=== PATIENT | male | born 1975 | race Hispanic/Latino ===

== ENCOUNTER 2024-04-17 21:39 | Emergency (ER) | payer OTHER, SELFPAY ==
[2024-04-17] MEDS ORDERED: Metoclopramide HCl 10 MG (2 mL) VIAL ONE (22:03)
[2024-04-17] MEDS ORDERED: Dexamethasone 10 MG/ML VIAL ONE (22:03)
[2024-04-17] MEDS ORDERED: Meclizine HCl 25 MG TAB ONE (22:03)
[2024-04-17] MEDS ORDERED: Lorazepam 2 MG/ML VIAL ONE (22:03)
[2024-04-17] MEDS ORDERED: diphenhydrAMINE 50 MG/ML VIAL ONE (22:09)
[2024-04-17 22:18] LABS: #Basophils 0.1 thou/uL (0.0-0.2); #Lymphocytes 1.1 thou/uL (1.20-3.40); #Monocytes 0.5 thou/uL (0.11-0.59); #Neutrophils 9.1 thou/uL (1.40-6.50); %Basophils 0.5 % (0.0-1.0); %Lymphocytes 9.9 % (21.0-51.0); %Monocytes 4.7 % (0.0-10.0); %Neutrophils 84.9 % (42.0-75.0); Hemoglobin 15.9 g/dL (14.0-18.0); Mean Corpuscular HGB CONC 34.5 g/dL (32.0-36.0); Mean Corpuscular Hemoglobin 28.7 pg (27.0-31.0); Mean Corpuscular Volume 83.1 fl (78.0-98.0); Mean Platelet Volume 6.7 fL (7.4-10.4); Platelet Count 278 10x3/uL (130-400); RBC Distribution Width 11.1 % (11.5-14.5); Red Blood Cell (RBC) Count 5.53 mill/uL (4.70-6.10); White Blood Cell (WBC) Count 10.8 10x3/uL (4.8-10.8)
[2024-04-17 22:26] LABS: ALT (SGPT) 32 U/L (8-55); AST (SGOT) 16 U/L (5-34); Albumin 4.4 g/dL (3.5-5.0); Alkaline Phosphatase 112 U/L (40-110); Anion Gap 19 mmol/L (10-20); BUN (Urea Nitrogen) 15 mg/dL (8.9-20.6); Bilirubin, Total 1.4 mg/dL (0.2-1.2); Calc. Creatinine Clearance 0 mL/min (70-130); Calcium 9.5 mg/dL (7.8-10.44); Carbon Dioxide 18 mmol/L (22-29); Chloride 103 mmol/L (98-107); Estimated GFR 93; Globulin 3.1 g/dL (2.4-3.5); Glucose 249 mg/dL (70-105); Potassium 3.8 mmol/L (3.5-5.1); Protein, Total 7.5 g/dL (6.0-8.3); Sodium 136 mmol/L (136-145)
[2024-04-17 22:27] LABS: Troponin I Less than 0.010 ng/mL (< 0.028)
[2024-04-17 22:28] LABS: Acetaminophen Less than 10 mcg/mL (Less than 10); Alcohol Less than 10.0 mg/dL (Less than 10); Lipase 28 U/L (8-78); Salicylate Less than 8.0 mg/dL (Less than 8.0)
[2024-04-17] MEDS ORDERED: Aspirin Chewable 81 MG TAB ONE ×2 (22:40→22:42)
== END 2024-04-18 00:42 | disposition short-term general hospital (02) ==
LOC: BURERS 21:39
DX: R42 Dizziness and giddiness (principal); E11.9 Type 2 diabetes mellitus without complications; E78.5 Hyperlipidemia, unspecified; Z79.899 Other long term (current) drug therapy; Z79.4 Long term (current) use of insulin; Z79.84 Long term (current) use of oral hypoglycemic drugs
CPT/HCPCS: 36416; 70450; 80053; 80307; 83690; 84484; 85025; 93005; 96374; 96375; J1100; J1200; J2060; J2765